=== PATIENT | female | born 1960 | race Caucasian/White ===

== ENCOUNTER 2021-08-16 00:44 | Day surgery (SDC) | payer OTHER, SELFPAY ==
[2021-08-01 13:41] VITALS: BMI 22.6
[2021-08-16 06:54] VITALS: BP 107/66; PULSE 72; RESP 18; TEMP 36.3; O2SAT 99
[2021-08-16] MEDS: LACTATED RINGERS 1,000 ML 150 ML IV CONT (07:07)
--- NOTE | 2021-08-16 07:56 | WPDANESEPPF ---
Anes - Initial Pre Proc Eval Procedure: Operation Date: 08/16/21 08:00 Proposed Procedures p Esophagogastroduodenoscopy & Screening Colonoscopy - Abdiel Holman MD Date/Time: 08/16/21 07:56 Surgeon: Abdiel Holman MD Pre Op Diagnosis: GERD, dysphagia, neoplasm screening Patient Data Age: 60 Gender: F Height: 1.63 m Weight: 59.1 kg Last Vital Signs Temp 97.4 F L 08/16/21 06:54 Pulse 72 08/16/21 06:54 Resp 18 08/16/21 06:54 BP 107/66 08/16/21 06:54 Pulse Ox 99 08/16/21 06:54 O2 Del Method Room Air 08/16/21 06:54 Allergies Allergy/AdvReac Type Severity Reaction Status Date / Time No Known Allergies Allergy Mild Verified 08/16/21 06:54 Home Medications Medication Instructions Recorded Confirmed Type ibuprofen 200 mg tablet (Advil) 200 mg PO Q6H PRN Allergic Symptoms 11/09/19 08/01/21 History calcium carb 300 mg-D3 800 1 tablet PO DAILY 05/30/21 08/01/21 History unit-mag ox 25 mg-copy holder 0.5 mg-karina-Zn tablet (Caltrate + D3 Plus Minerals) mecobalamin (vitamin B12) 5,000 5,000 mcg PO DAILY 05/30/21 08/01/21 History mcg lozenge multivitamin with minerals-folic 1 tablet PO DAILY 05/30/21 08/01/21 History acid 200 mcg chewable tablet (Adult Multivitamin Gummies) omega 7-ypn-lce-fish oil 60 mg-90 1 cap PO DAILY 05/30/21 08/01/21 History mg-500 mg capsule (Fish Oil) pantoprazole 40 mg tablet,delayed 40 mg PO BID 05/30/21 08/01/21 History release pseudoephedrine HCl 120 mg 120 mg PO DAILY 08/01/21 08/01/21 History capsule,extended release Patient hx anesthesia problems: none Family hx anesthesia problems: none Results Review: All pre-operative results and documents have been reviewed as part of the pre-operative evaluation. [facility] Past Medical History Medical History (Updated 08/16/21 @ 08:06 by Abdiel Holman MD) Ankle joint instability Moderate ankle sprain Peroneal tendinitis of left lower leg Seasonal allergies Vision loss Surgical History Surgical History (Updated 05/30/21 @ 13:07 by Theresa Tirado MA) Hx of cholecystectomy Family History Family History (Updated 05/30/21 @ 12:58 by Theresa Tirado MA) Father Hypertension Heart disease Mother Hypertension Other Cancer Social History Social History (Updated 05/30/21 @ 12:59 by Theresa Tirado MA) Smoking status: Never smoker Alcohol intake: current Drinks per week: 4 Substance use: unknown Substance use type: does not use Living arrangements: with family 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 [employer] Gender identity (if verbalized by the patient): Female Spiritual care concerns: No Anes - Eval Final PreProcedure Day of Procedure 08/16/21 07:56 Patient weight: normal Heart: regular rate and rhythm Lungs: clear to auscultation Airway: Mallampati scale class II Neurological: alert and oriented Last oral intake: >/= 8 hours ASA classification: II Emergent: no Anesthetic plan: proceed Anesthesia type and monitoring: general GIVS and standard monitoring Results Review: All pre-operative results and documents have been reviewed as part of the pre-operative evaluation. Informed Consent: The patient's anesthetic plan and its attendant risks and benefits were discussed with the patient/family/POA. Questions were solicited and answers provided to the satisfaction of the patient/family/POA.
--- NOTE | 2021-08-16 08:04 | PM.IMHP ---
H&P: HPI History of Present Illness Date/Time: 08/16/21 08:04 Chief Complaint: dysphagia, GE reflux disease and neoplasia screening. Narrative: This is a 60-year-old white female patient who complains of a lifelong history of acid reflux disease. Previously she took Nexium. However over recent years has stopped this. She did well until May when she had a flare of disease with significant heartburn. She states this lasted persisted for some time. Upon seeing physician was restarted on pantoprazole 40mg p.o. b.i.d. this is caused her heartburn to improve. She does state that when eating foods it passes slow through the chest. She has never had a prior endoscopy to assess for abnormal mucosa. She currently denies any bleeding. Her weight has remained stable. Additionally she desires neoplasia screening because of her age she has had no bleeding. Bowel habits are normal. Family history noncontributory. Review of Systems Review of Systems: Review of systems noncontributory. [facility] Past Medical History Medical History (Updated 08/16/21 @ 08:06 by Abdiel Holman MD) Ankle joint instability Moderate ankle sprain Peroneal tendinitis of left lower leg Seasonal allergies Vision loss Surgical History Surgical History (Updated 05/30/21 @ 13:07 by Theresa Tirado MA) Hx of cholecystectomy Family History Family History (Updated 05/30/21 @ 12:58 by Theresa Tirado MA) Father Hypertension Heart disease Mother Hypertension Other Cancer Social History Social History (Updated 05/30/21 @ 12:59 by Theresa Tirado MA) Smoking status: Never smoker Alcohol intake: current Drinks per week: 4 Substance use: unknown Substance use type: does not use Living arrangements: with family Additional occupation/education comments: assistant analyst in [employer] Gender identity (if verbalized by the patient): Female Spiritual care concerns: No Meds Home Medications and Allergies Home Medications Medication Instructions Recorded Confirmed Type ibuprofen 200 mg tablet (Advil) 200 mg PO Q6H PRN Allergic Symptoms 11/09/19 08/01/21 History calcium carb 300 mg-D3 800 1 tablet PO DAILY 05/30/21 08/01/21 History unit-mag ox 25 mg-copyist 0.5 mg-karina-Zn tablet (Caltrate + D3 Plus Minerals) mecobalamin (vitamin B12) 5,000 5,000 mcg PO DAILY 05/30/21 08/01/21 History mcg lozenge multivitamin with minerals-folic 1 tablet PO DAILY 05/30/21 08/01/21 History acid 200 mcg chewable tablet (Adult Multivitamin Gummies) omega 6-jrq-dky-fish oil 60 mg-90 1 cap PO DAILY 05/30/21 08/01/21 History mg-500 mg capsule (Fish Oil) pantoprazole 40 mg tablet,delayed 40 mg PO BID 05/30/21 08/01/21 History release pseudoephedrine HCl 120 mg 120 mg PO DAILY 08/01/21 08/01/21 History capsule,extended release Allergies Allergy/AdvReac Type Severity Reaction Status Date / Time No Known Allergies Allergy Mild Verified 08/16/21 06:54 Vital Signs Vital Signs - 24 hr 08/16/21 06:54 Temperature 97.4 F L Pulse Rate 72 Respiratory Rate 18 Blood Pressure 107/66 Pulse Oximetry 99 Oxygen Delivery Room Air Exam Narrative: Physical exam reveals patient to be alert. Vital signs stable. HEENT exam is unremarkable. Patient is anicteric. Lungs are clear to auscultation and percussion. Heart is without murmur or extra sounds. Abdominal exam bowel sounds are present soft nontender with no hepatosplenomegaly. Digital external rectal exam is normal. Assessment and Plan Assessment and plan (1) GERD (gastroesophageal reflux disease): Code(s): K21.9 - Gastro-esophageal reflux disease without esophagitis Status: Acute Assessment and Plan: Patient with long history of GE reflux disease. This had a significant flare in May of this year that has responded to pantoprazole 40mg p.o. b.i.d.. Plan is for anti-reflux measures. An EGD will be performed. And h
--- NOTE | 2021-08-16 08:32 | SUR.OPER ---
EGD end [id number], Colonoscopy start time [id number]
[2021-08-16 08:43] VITALS: BP 86/53; PULSE 64; RESP 20; O2SAT 98
[2021-08-16 08:53] VITALS: BP 111/66; PULSE 64; RESP 20; O2SAT 100
[2021-08-16 09:03] VITALS: BP 112/56; PULSE 72; RESP 18; O2SAT 100
== END 2021-08-16 09:11 | disposition home or self-care (01) ==
PROVIDERS: PCP Internal Medicine; Visit Provider Internal Medicine Gastroenterology
PROC: 0DJ08ZZ Inspection of Upper Intestinal Tract, Via Natural or Artificial Opening Endoscopic (ICD-10-PCS; CPT 43235; principal; 2021-08-16 08:00)
DX: Z12.11 Encounter for screening for malignant neoplasm of colon (principal); R13.10 Dysphagia, unspecified; K21.9 Gastro-esophageal reflux disease without esophagitis; Z90.49 Acquired absence of other specified parts of digestive tract; K64.8 Other hemorrhoids
CPT/HCPCS: 45378; 43239; 43450; 87081; J2001; J2704; J7120

== ENCOUNTER 2022-08-12 12:30 | Outpatient (RCR) | payer OTHER, SELFPAY ==
--- NOTE | 2022-07-01 15:26 | PTOPEVAL1 ---
Assessment and note entered by Leeann Serna, PT Evaluation Information Assessment Status Evaluation Diagnosis cervicalgia Onset chronic Subjective Information Has had neck issues for a while. Saw physical therapy previously for this about ~ 7 years ago, this really helped. Notes has recently lost range this past winter. Started Celebrex per provider and this has helped the pain but still notes restriction and loss of range. Reports has been diagnosed previously w/ arthritis Gets stiff in shoulders and will get pain in shoulders with increased stiffness. Notes has had tingling in right fingers and notes recently thinks left finger tingling Notes with working out gets N/T in right hand and notes hand is always cold too. Reported Pain Level Pain Score 0: Self Report Assessment PT Clinical Summary Pt has chronic history of neck pain that is on and off. Recently started medication related to neck pain and this has helped greatly. Pt evaluation demo's abnormal postures, muscle tightness and tone, tenderness, decreased cervical ROM, and radicular symptoms. Pt was educated on body mechanics today with bed mobility and golf activities. Pt will benefit from physical therapy to address deficits, improve cervical ROM, decompress cervical spine, improve muscle flexibility and postural patterns to reduce pain. Plan of Care Interventions Electrical Stimulation,Hot Pack/Cold Pack,Manual Therapy,Mechanical Traction,Neuro Re-education, Therapeutic Activities,Therapeutic Exercise, Ultrasound PT Services Indicated Yes Treatment Frequency and 2x weekly x 8 weeks Duration These treatments will address the objective and functional deficits as defined above. The patient will be advanced safely and appropriately in order for the patient to progress towards his/her prior level of function. Additional exercises will be introduced and as well as a comprehensive home exercise program upon discharge, if needed, ?to ensure carryover of functional gains achieved in the clinic. This treatment plan has been reviewed and agreement upon by the patient.
--- NOTE | 2022-07-24 13:49 | PTOPPROG ---
Assessment and note entered by Leeann Serna, PT Assessment Status Progress Report Diagnosis cervicalgia Onset chronic Subjective Information Pt reports feeling about 90%. Reports would like to continue secondary to discomfort with turning while driving. Wants to be able to look out the window when turning better. Tingling has really improved. Only gets tingling w/ work out routines. Assessment PT Clinical Summary Pt reports feeling 90% improved overall. Still has discomfort/pain with turning while in her car while driving. Pt reports also that tingling has greatly as well. Pt cont to demo abnormal postures and tight musculature, decreased range of motion, and discomfort. Thus would benefit from continued therapy to improve range and discomfort to meet maximal benefit for improved function. Plan of Care Interventions Electrical Stimulation,Hot Pack/Cold Pack,Manual Therapy,Mechanical Traction,Neuro Re-education, Therapeutic Activities,Therapeutic Exercise, Ultrasound PT Services Indicated Yes Treatment Frequency and Cont POC 1-2x weekly x 4 weeks Duration These treatments will address the objective and functional deficits as defined above. The patient will be advanced safely and appropriately in order for the patient to progress towards his/her prior level of function. Additional exercises will be introduced and as well as a comprehensive home exercise program upon discharge, if needed, ?to ensure carryover of functional gains achieved in the clinic. This treatment plan has been reviewed and agreement upon by the patient.
--- NOTE | 2022-08-12 13:14 | PTOPDC ---
Assessment and note entered by Leeann Serna, PT Assessment Status Discharge Diagnosis cervicalgia Onset chronic Subjective Information Pt reports has only taken Celebrex once in the past week and was after lifting boxes. Feels 90% improved overall. Reports still ranges from 0-4/10 pain but the higher pain levels are less often. Is more aware of posture. I'm happy where I'm at, I feel good . Also notes feels better getting up in the mornings, doesn't have to work out the stiffness. Reported Pain Level Pain Score 1: Self Report Assessment PT Clinical Summary Pt has participated in therapy consistently for 12 visits. She reports feeling 90% improved overall, demo's improved postural awareness, improved ROM of the cervical spine and pain ranges 0-4/10 and is taking Celebrex much less often. She has been educated in her final home exercise program, has been issues a TENS unit for discomfort, and understands when to return to provider if further therapy is needed. Pt reports she is happy with her progress overall. Thus patient is being discharged from therapy services for completion of program.
== END 2022-08-12 13:51 | disposition home or self-care (01) ==
LOC: ANHHIPT 12:30
PROVIDERS: PCP Physician Assistant Medical; Visit Provider Physician Assistant Medical
DX: M47.812 Spondylosis without myelopathy or radiculopathy, cervical region (principal); M54.2 Cervicalgia
CPT/HCPCS: 97012; 97014; 97110; 97112; 97140; 97162; G0283

== ENCOUNTER 2023-10-24 16:58 | Emergency (ER) | payer OTHER, MEDICARE, SELFPAY ==
[2023-10-24 17:11] VITALS: BP 153/83; PULSE 69; RESP 16; TEMP 36.8; O2SAT 100
[2023-10-24 17:14] VITALS: BP 153/83; PULSE 69; RESP 16; TEMP 36.8; O2SAT 100
--- NOTE | 2023-10-24 17:30 | ED.SKABFB ---
HPI - Skin/Abscess/Foreign Bdy General Chief complaint: Skin/Abscess/Foreign Body Stated complaint: rash Time Seen by Provider: 10/24/23 17:20 Source: patient, RN notes reviewed and old records reviewed Mode of arrival: ambulatory Limitations: no limitations History of Present Illness HPI narrative: 63 year old female ho presents to express care with complaints of rash under her right breast which she first noted on which has increased in number of raised red lesions .Patient has linear red rash which patient reports is itchy, did originally have some pain in area last week and thought maybe she had on too tight a bra and also yesterday she thought bra was rubbing area so applied Neosporin and covered with band-aide. Today patient reports she has noted some more pustular type of lesions in same area. She states she has been stressed over up coming wedding in 3 weeks. MD complaint: rash Onset (ago): day(s) ( ) Location: chest (under right breast) Treatments prior to arrival: other ( Neosporin and Cortaid) Related Data Home Medications Medication Instructions Recorded Confirmed mecobalamin (vitamin B12) 5,000 5,000 mcg PO DAILY 05/30/21 10/24/23 mcg lozenge multivitamin with minerals-folic 1 tablet PO DAILY 05/30/21 10/24/23 acid 200 mcg chewable tablet (Adult Multivitamin Gummies) Allergies Allergy/AdvReac Type Severity Reaction Status Date / Time No Known Allergies Allergy Mild Verified 10/24/23 17:13 Review of Systems Review of Systems: CONSTITUTIONAL: Denies fever, chills, or sweats. CARDIOVASCULAR: Denies chest pain, palpitations, or edema. RESPIRATORY: Denies cough or dyspnea. SKIN: Reports linear rash under right breast lateral rib area with pain and ithing to area, increased lesions today with more pustular appearance MUSCULOSKELETAL: Denies joint pain or myalgia. NEUROLOGIC: Denies headache, numbness, or weakness. All systems reviewed & are unremarkable except as noted in HPI and below [facility] Past Medical History Medical History (Updated 10/24/23 @ 18:20 by Marcia Adan NP) Ankle joint instability Fibroid, uterine Hysteroscopy, curettage and removal fibroidectomy 2006 GERD (gastroesophageal reflux disease) with esophageal stricture Moderate ankle sprain Peroneal tendinitis of left lower leg Seasonal allergies Vision loss Vitamin D deficiency Surgical History Surgical History H/O: hemorrhoidectomy History of dilatation and curettage Hx of cholecystectomy Family History Family History Father Hypertension Heart disease Mother Hypertension Other Cancer Social History Social History Smoking status: Never smoker Alcohol intake: current Drinks per week: 4 Substance use: never Substance use type: does not use Do You Feel Safe in your Home?: Yes Lack of Transportation: No Lack of Food: Never True Current Housing: I Have Housing Concerned About Future Housing: No Difficulty Paying Gas/Electric Bills: No Difficulty Paying for Meds: No Currently Unemployed: No Education: Don't Know Difficulty w/ Childcare or Family Care: No Living arrangements: with family Occupation/Education: retired Gender identity (if verbalized by the patient): Female Spiritual care concerns: No Comments At time of signature, agree with nursing past medical, surgical, social and family history. There is no relevant family history pertinent to the presenting complaint Exam Narrative: GENERAL: Well-appearing, well-nourished, and in no acute distress. HEAD: Normocephalic, atraumatic. EYES: PERRLA, conjunctivae clear, and EOMI. ENT: Mucous membranes moist. Oropharynx without edema, erythema or lesions. NECK: Supple. No lymphadenopathy CHEST: Clear to auscultation.
== END 2023-10-24 17:37 | disposition home or self-care (01) ==
PROVIDERS: Emergency Provider Registered Nurse
DX: B02.9 Zoster without complications (principal); K21.9 Gastro-esophageal reflux disease without esophagitis
CPT/HCPCS: 99213; G0463